=== PATIENT | male | born 1995 | race Caucasian/White ===

== ENCOUNTER 2017-04-08 04:47 | Emergency (ER) | payer SELFPAY ==
[2017-04-08] MEDS ORDERED: Ketorolac Tromethamine 30 MG/ML VIAL ONE (08:38)
== END 2017-04-08 09:20 | disposition home or self-care (01) ==
LOC: ERS 04:47
DX: S03.01XA Dislocation of jaw, right side, initial encounter (principal); F17.210 Nicotine dependence, cigarettes, uncomplicated
CPT/HCPCS: 96361; 96374; J1885